=== PATIENT | female | born 1950 | race Caucasian/White ===

== ENCOUNTER → 2022-03-07 | Outpatient (CLI) | payer MEDICARE ==
--- NOTE | 2022-03-07 08:06 | CT ---
EXAMINATION TYPE: CT foot LT wo con DATE OF EXAM: 03/07/2022 COMPARISON: None HISTORY: Crushing injury of foot CT DLP: 227 mGycm Automated exposure control for dose reduction was used. Unenhanced CT of the left foot was performed in the axial coronal and sagittal planes. Bone and soft tissue window settings are reviewed. FINDINGS: The ankle mortise is intact. Plantar calcaneal spur formation noted. There is spurring noted about th e first, second and third cuneiforms. There is evidence of os cuboideum. I do not see evidence for a displaced fracture at this time. Mild dorsal soft tissue swelling is noted. There is a healed fractur e noted to involve the neck of the fifth metatarsal. IMPRESSION: 1. I do not see evidence for acute fracture. Healed fracture neck of the fifth metatarsal. 2. Degenerative changes with degenerative spurring is noted. 3. Mild soft tissue swelling.
== END | disposition home or self-care (01) ==
LOC: RADCTMAIN 06:37
PROVIDERS: ATTEND Orthopaedic Surgery
DX: M19.072 Primary osteoarthritis, left ankle and foot (principal)

== ENCOUNTER → 2022-08-22 | Outpatient (CLI) | payer BC, MEDICARE ==
[2022-08-22 12:13] LABS: Basophils % (A) 1 %; Eosinophils # (A) 0.2 k/uL (0-0.7); Eosinophils % (A) 3 %; HCT 32.3 % (34.0-46.0); HGB 10.8 gm/dL (11.4-16.0); Lymphocytes # (A) 1.2 k/uL (1.0-4.8); Lymphocytes % (A) 24 %; MCH 31.8 pg (25.0-35.0); MCHC 33.5 g/dL (31.0-37.0); MCV 94.9 fL (80.0-100.0); Monocytes # (A) 0.4 k/uL (0-1.0); Monocytes % (A) 7 %; Neutrophils # (A) 3.3 k/uL (1.3-7.7); Neutrophils % (A) 64 %; Platelet Count 246 k/uL (150-450); RBC 3.41 m/uL (3.80-5.40); RDW 12.5 % (11.5-15.5); WBC 5.2 k/uL (3.8-10.6)
== END | disposition home or self-care (01) ==
LOC: LABWHC1 11:31
PROVIDERS: ATTEND Family Medicine
DX: D50.0 Iron deficiency anemia secondary to blood loss (chronic) (principal)
CPT/HCPCS: 36415; 85025